=== PATIENT | female | born 1985 | race Caucasian/White ===

== ENCOUNTER → 2018-10-25 | Outpatient (CLI) | payer OTHER | LOC: DL.CLIN 02:55 | PROVIDERS: ATTEND Physician Assistant Medical | DX: R20.2 Paresthesia of skin (principal) | CPT/HCPCS: 82607; 82947 ==

== ENCOUNTER 2019-06-28 09:27 | Day surgery (SDC) | payer OTHER ==
[~2019-06-28 09:27] MED LIST: Benzocaine 20% Topical Spray UD MUCMEM ONE; Midazolam 1 MG/ML 2 ML SDV ONE
[2019-06-28] MEDS ORDERED: Midazolam 1 MG/ML 2 ML SDV IV ONE ×7 (09:28→11:21)
[2019-06-28] MEDS ORDERED: Dextrose 5%-0.45% NaCl 1,000 ML IV SCH (09:45)
[2019-06-28] MEDS ORDERED: Benzocaine 20% Topical Spray UD MUCMEM ONE (11:13)
[2019-06-28] MEDS ORDERED: Midazolam 1 MG/ML 2 ML SDV ONE (11:40)
--- NOTE | 2019-06-28 15:34 | OR ---
DATE: 06/28/2019 PREOPERATIVE DIAGNOSIS: Gastroesophageal reflux disease. POSTOPERATIVE DIAGNOSIS: Gastroesophageal reflux disease. PROCEDURE: EGD with biopsy of gastric antrum for H. pylori analysis. ANESTHESIA: Conscious sedation with IV Versed. SPECIMENS: H. pylori biopsy. OPERATIVE FINDINGS: A 2 to 3 cm hiatal hernia with a few minimal streaks of distal esophagitis. Gastric and duodenal anatomy are normal. INDICATION FOR PROCEDURE: This patient has symptoms of regurgitation which she describes as having chest pain and a lump in her throat. She does not have any regurgitation symptoms. She has been on H2 blockers and/or proton pump inhibitors without too much reaction. RECOMMENDATION: I would still continue just with changing her antacid therapy around. She does have a hiatal hernia. However, her BMI is too high to recommend a Chelsy fundoplication for reflux. She really does not have much in the way of significant esophagitis and her symptoms are not cardiac. Current recommendation for patients with BMI of over 35 or certainly over 40 is to have a weight loss surgery instead of a Chelsy fundoplication. If her symptoms worsen, I might consider just a hiatal hernia repair without a wrap. PROCEDURE IN DETAIL: After adequate preparation, a gastroscope was inserted into the esophagus. This was passed down to the distal esophagus, she shows a 2 to 3 cm hiatal hernia and a few minimal streaks of a grade 1 distal esophagitis. The scope was advanced into the stomach. Both forward and retroflexed views were done, which were normal except they demonstrate a hiatal hernia on retroflexion. The scope was advanced through the pylorus and the duodenum was also normal. On withdrawal of the scope into the stomach, a biopsy of the prepyloric antrum was done to look for H. pylori. Air was suctioned from the stomach, and the scope was removed. [facility] /[id number]
== END 2019-06-28 12:50 | disposition home or self-care (01) ==
LOC: DL.ENDO 09:27
PROVIDERS: ATTEND Surgery
DX: K21.0 Gastro-esophageal reflux disease with esophagitis (principal); K44.9 Diaphragmatic hernia without obstruction or gangrene; F17.200 Nicotine dependence, unspecified, uncomplicated; Z79.899 Other long term (current) drug therapy; Z79.84 Long term (current) use of oral hypoglycemic drugs
CPT/HCPCS: 43239; 81025; 87077; A9270; J2250; J7042